=== PATIENT | female | born 1945 | race Caucasian/White ===

== ENCOUNTER 2023-11-23 14:47 | Outpatient (RCR) | payer MEDICARE, MEDICAID | END 2023-12-02 | LOC: M PT 14:47 | PROVIDERS: ATTEND Internal Medicine | DX: I89.0 Lymphedema, not elsewhere classified (principal) ==

== ENCOUNTER 2023-12-22 09:30 | Outpatient (RCR) | payer MEDICARE, MEDICAID | END 2023-12-31 | LOC: M PT 09:30 | PROVIDERS: ATTEND Internal Medicine | DX: R22.43 Localized swelling, mass and lump, lower limb, bilateral (principal) ==

== ENCOUNTER 2024-06-21 09:43 | Outpatient (RCR) | payer MEDICARE, MEDICAID | END 2024-07-02 | LOC: M PT 09:43 | PROVIDERS: ATTEND Internal Medicine | DX: R60.9 Edema, unspecified (principal) ==

== ENCOUNTER 2025-06-21 10:28 | Outpatient (RCR) | payer MEDICARE, MEDICAID | END 2025-07-02 | LOC: M PT 10:28 | PROVIDERS: ATTEND Internal Medicine | DX: I89.0 Lymphedema, not elsewhere classified (principal) ==